=== PATIENT | female | born 1975 | race African-American/Black ===

== ENCOUNTER 2022-09-18 13:47 | Outpatient (CLI) | payer OTHER | END 2022-09-18 13:48 | disposition home or self-care (01) | LOC: MRI 13:47 | PROVIDERS: ATTEND Family Medicine | DX: M46.1 Sacroiliitis, not elsewhere classified (principal); M47.9 Spondylosis, unspecified; M54.50 Low back pain, unspecified; G03.8 Meningitis due to other specified causes; M51.37 Other intervertebral disc degeneration, lumbosacral region | CPT/HCPCS: 72148 ==

== ENCOUNTER 2023-03-13 15:51 | Outpatient (CLI) | payer OTHER | END 2023-03-13 15:52 | disposition home or self-care (01) | LOC: BICRAD 15:51 | PROVIDERS: ATTEND Student in an Organized Health Care Education/Training Program | DX: M46.1 Sacroiliitis, not elsewhere classified (principal); F41.1 Generalized anxiety disorder; M76.01 Gluteal tendinitis, right hip; M25.752 Osteophyte, left hip; M25.751 Osteophyte, right hip; M25.552 Pain in left hip; M25.551 Pain in right hip; M25.571 Pain in right ankle and joints of right foot | CPT/HCPCS: 72170 ==